=== PATIENT | female | born 1960 | race Caucasian/White ===

== ENCOUNTER → 2016-04-12 | Outpatient (CLI) | payer BC ==
--- NOTE | 2016-04-12 15:23 | MAM ---
EXAM DESCRIPTION: MAMMO BREAST SCREENING BILATERAL CAD, images were reviewed with CAD technology, R2 computer-aided detection. CLINICAL HISTORY: [facility]. COMPARISON: 2012 FINDINGS: Routine views are obtained. Scattered glandular pattern. No dominant mass, architectural distortion or clustered microcalcification period. IMPRESSION: Benign exam. BIRAD CATEGORY: 2 BENIGN RECOMMENDATIONS: FOLLOW-UP: Routine screening mammogram in one year. According to the [employer], yearly mammograms are recommended starting at age 40 and continuing as long as a woman is in good health. Any breast change noted on a breast self-exam should be reported promptly to the patient's healthcare provider. Breast MRI is recommended for women with an approximately 20-25% or greater lifetime risk of breast cancer, including women with a strong family history of breast or ovarian cancer and women who have been treated for Hodgkin's disease. Electronically signed by: Kaylen Dooley 04/12/2016 15:21
== END | disposition home or self-care (01) ==
LOC: MAMMO 08:35
PROVIDERS: ATTEND Family Medicine
DX: Z12.31 Encounter for screening mammogram for malignant neoplasm of breast (principal)

== ENCOUNTER → 2016-06-09 | Outpatient (CLI) | payer BC | END | disposition home or self-care (01) | LOC: GMAB 14:31 | PROVIDERS: ATTEND Family Medicine | DX: Z00.00 Encounter for general adult medical examination without abnormal findings (principal) ==

== ENCOUNTER → 2016-12-20 | Outpatient (CLI) | payer BC ==
--- NOTE | 2016-12-20 19:52 | US ---
EXAM DESCRIPTION: Thyroid: Ultrasound. CLINICAL HISTORY: THY NODULE COMPARISON: None. TECHNIQUE: Transcutaneous scannin-dimensional and Doppler modes. FINDINGS: Right lobe dimensions 4.6 x 1.4 x 1.3 cm. Heterogeneous echoes. 3.6 x 3.2 mm anechoic cyst, nonvascular . Normal vascularity in the remainder of the lobe. No microcalcifications. Contour right lobe smooth. Juxta-thyroid masses/fluid: none. Left lobe dimensions 4.1 x 1.5 x 1.5 cm. Heterogeneous echoes. Hypoechoic mass in the inferior pole with mass effect on the inferior pole capsule. 1.1 cm transverse, 1.4 x 1.2 cm in the sagittal plane. Mixed posterior features. Nonvascular. No vascularity in the remainder of the lobe. No microcalcifications. Contour left lobe smooth. Juxta-thyroid masses/fluid: none. Isthmus thickness 2.2 mm. Homogeneous echoes. No cystic, no solid, and no complex lesions. Normal vascularity. Contour smooth. IMPRESSION: 1. Solid nodule with possible cystic components in the inferior pole of the left lobe. This does not meet the imaging criteria for Fine needle aspiration sampling according to best practice guidelines, adopted from ACR white paper and Sellers 3-tiered guidelines on incidental thyroid nodules. Please see below.* These recommendations do not apply to patients with increased risk for thyroid cancer or patients with symptomatic thyroid disease. Small cyst in the right lobe. 2. No discrete solid masses, cystic masses, or edema in the surrounding soft tissues. *Further evaluation by thyroid US recommended for: -Solitary incidental thyroid nodule (ITN) with high risk imaging features (locally invasive nodule or suspicious lymph nodes) -Solitary ITN of any size in pediatric patients <= 18 years of age -Solitary ITN >= 1 cm in axial plane in patients between 18 and 35 years of age -Solitary ITN >= 1.5 cm in axial plane in patients >= 35 years of age -Heterogeneous enlarged thyroid gland -ITN avid on FDG-PET or other nuclear medicine (MIBI and octreotide) scans. FNA biopsy is also recommended for PET avid nodules. 2.No f/u imaging is recommended for ITN's not meeting the above criteria. 3.For multiple thyroid nodules, the above recommendations for solitary ITN are to be applied to the largest nodule. 4.No US or f/u recommended for ITN's without high risk features in patients with limited life expectancy or significant co-morbidities, unless clinically warranted. 5.These recommendations do not apply to patients w/ increased risk for thyroid cancer or patients with symptomatic thyroid disease. Recommendations for f/u of Incidental Thyroid Nodules (ITN) found on CT, MR, NM and Extrathyroidal US are based upon the ACR white paper and Sellers 3-tiered system for managing ITN's: [facility] 2015 Apr;12(2): 143-50 Electronically signed by: Lenard Day MD 12/20/2016 7:51 PM CDT Workstation: [id number]
== END | disposition home or self-care (01) ==
LOC: US 10:11
PROVIDERS: ATTEND Family Medicine
DX: E04.1 Nontoxic single thyroid nodule (principal)

== ENCOUNTER → 2017-05-12 | Outpatient (CLI) | payer BC ==
--- NOTE | 2017-05-12 16:45 | CT ---
EXAM DESCRIPTION: Head CLINICAL HISTORY: DIZZINES COMPARISON: None Available TECHNIQUE: Contiguous axial CT images of the head were obtained. Coronal and sagittal reconstructions were created from the axial data. This exam was performed according to our departmental dose-optimization program, which includes automated exposure control, adjustment of the mA and/or kV according to patient size and/or use of iterative reconstruction technique. FINDINGS: There is no evidence of acute mass, mass effect, midline shift or hemorrhage. The ventricles and extra-axial CSF spaces are unremarkable. The brain parenchyma appears normal for the patient's age. No acute abnormalities of the bones is seen. IMPRESSION: No acute intracranial abnormality. Electronically signed by: Lenard Chen 05/12/2017 4:44 PM [facility]
== END ==
LOC: CT 10:13
PROVIDERS: ATTEND Family Medicine
DX: R42 Dizziness and giddiness (principal)

== ENCOUNTER 2017-05-28 23:44 | Emergency (ER) | payer BC ==
[2017-05-29 00:02] VITALS: O2SAT 98
[2017-05-29] MEDS ORDERED: ASPIRIN TABLET 325 MG TAB PO ONE (00:16)
--- NOTE | 2017-05-29 00:25 | ED.PDOC ---
History of Present Illness - General Chief Complaint: General Stated Complaint: vision blurry and dizziness Time Seen by Provider: 05/28/17 23:52 Source: patient, other - riend Exam Limitations: no limitations - History of Present Illness Initial Comments: the patient is a 56-year-old female presenting to the emergency room secondary to 10 minutes of double vision that was witnessed by her friend. The patient apparently exhibited some enophthalmos of her left eye. She felt a little bit dizzy but not nauseated. No significant spinning of the room sensation. The time she arrived here the episode and left. The patient has been up for quite a long time today. She has apparently experienced some episodes of dizziness over the last couple of months that she has discussed with her primary care doctor. She did get a CT scan of the head a couple of weeks ago with her primary care doctor that did not show any acute pathology. She is not significantly dizzy now with any movements of the head. The only slightly unusual clinical finding I see currently is a mild vertical upbeat nystagmus when looking to the right. She is alert and oriented currently without any obvious neurological deficits. She is pleasant and cooperative. She does report that she has blood pressures that run very much on the low side and does take multiple pressure medication secondary to a history of some congestive heart failure and a heart attack several years ago. She does take diuretics. She did eat supper neema.. Timing/Duration: unsure Severity: moderate Improving Factors: nothing Worsening Factors: nothing Associated Symptoms: denies symptoms Allergies/Adverse Reactions: Allergies NO KNOWN ALLERGY Allergy (Unverified 11/24/12 17:18) Home Medications: Ambulatory Orders Cephalexin Monohydrate [Keflex] 500 mg PO Q8H #20 cap 05/29/17 Review of Systems - Review of Systems Constitutional: States: malaise EENTM: States: blurred vision, double vision Respiratory: States: no symptoms reported Cardiology: States: no symptoms reported Gastrointestinal/Abdominal: States: no symptoms reported Genitourinary: States: no symptoms reported Musculoskeletal: States: no symptoms reported Skin: States: no symptoms reported Neurological: States: see HPI Endocrine: States: no symptoms reported All other Systems: No Change from Baseline Past Medical History (General) - Patient Medical History Hx Cardiac Disorders: Yes Hx Pacemaker: Yes Hx Diabetes: No Surgical History: no surgical history - Vaccination History Hx Tetanus, Diphtheria Vaccination: Yes Hx Influenza Vaccination: No Hx Pneumococcal Vaccination: No - Social History Hx Tobacco Use: No Hx Alcohol Use: No Family Medical History - Family History Mother Family History: Unknown Physical Exam - Physical Exam General Appearance: Alert, Comfortable, No apparent distress Eye Exam: bilateral normal - see history of present illness Ears, Nose, Throat: hearing grossly normal, normal ENT inspection, normal pharynx Neck: full range of motion, supple Respiratory: lungs clear, normal breath sounds, no respiratory distress, no accessory muscle use Cardiovascular/Chest: normal peripheral pulses, regular rate, rhythm, no edema Peripheral Pulses: radial,right: 2+, radial,left: 2+, dorsalis pedis,right: 2+, dorsalis pedis,left: 2+ Gastrointestinal/Abdominal: non tender, soft Rectal Exam: deferred Back Exam: normal inspection, no CVA tenderness Extremity: normal range of motion, non-tender, normal inspection, no pedal edema , normal capillary refill Neurologic: rigger II-XII nml as tested, no motor/sensory deficits, alert, normal mood/affect, oriented x 3 Skin Exam: normal color Comments: Vital Signs - 24 hr 05/28/17 23:56 Temperature 97.8 F Pulse Rate [ 68 Left Radial] Respiratory 20 Rate Blood Pressure 110/64 [lt arm] O2 Sat by Pulse 98 Oximetry Progress - Progress Progress: 05/29/17 02:09 the patient is a 56-year-old female presenting after an episode of esotropia of the left eye that lasted 5-10 minutes. she did briefly have some mild vertical nystagmus when looking towards the right, shortly after but this is resolved. The patient does have some mild to moderate dehydration as well as a mild urinary tract infection. she will be placed on Keflex for the urinary tract infection and has received a first dose here tonight. She is to increase her fluid intake over the next day or 2 and change her Lasix to Tuesday dosings only. She was also given a dose of potassium for mild hypokalemia. All symptoms resolved and the patient just had a CT scan less than 2 weeks ago of the head so one was not repeated here tonight. Consideration should be given for neurological evaluation in the coming weeks if she has further episodes in spite of reducing the diuretics. ER warnings were given for any worsening. She should continue her aspirin. - Results/Orders Results/Orders: 05/29/17 00:15 Telemetry .CONTINUOUS normal sinus rhythm Vital Signs-Tilt PRN 05/29/17 00:30 EKG STAT shows normal sinus rhythm at 62 bpm. She does appear to have old Q waves and T-wave inversions in anterior leads. Otherwise no evidence of any acute ST segment changes indicative of acute ischemia. Laboratory Results - last 24 hr 05/29/17 05/29/17 05/29/17 00:20 00:25 00:25 WBC 8.5 RBC 3.90 L Hgb 12.8 Hct 36.6 MCV 93.9 MCH 32.8 H MCHC 34.8 RDW 12.4 Plt Count 188 MPV 7.6 Absolute Neuts (auto) 4.90 Absolute Lymphs (auto) 2.60 Absolute Monos (auto) 0.70 Absolute Eos (auto) 0.30 Absolute Basos (auto) 0.10 Neutrophils % 57.5 Lymphocytes % 30.6 Monocytes % 7.7 Eosinophils % 3.4 Basophils % 0.8 Sodium 138 Potassium 3.5 L Chloride 105 Carbon Dioxide 26 Anion Gap 10.5 L BUN 32 H Creatinine 1.02 BUN/Creatinine Ratio 31.4 H Random Glucose 105 Serum Osmolality 282.9 Calcium 9.5 Magnesium 2.1 Total Bilirubin 0.6 AST 24 ALT 21 Alkaline Phosphatase 78 Creatine Kinase 88 CK-MB (CK-2) 1.5 CK-MB (CK-2) % Not Reportable Troponin I < 0.02 B-Natriuretic Peptide 50.3 Serum Total Protein 7.4 Albumin 4.5 Globulin 2.9 Albumin/Globulin Ratio 1.6 TSH 3.39 Urine Color Yellow Urine Appearance Clear Urine pH 5.0 Ur Specific [place] 1.010 Urine Protein Negative Urine Glucose (UA) Negative Urine Ketones Negative Urine Blood Trace-intact H Urine Nitrite Negative Urine Bilirubin Negative Urine Urobilinogen 0.2 Ur Leukocyte Esterase Small H Urine RBC 1-3 Urine WBC 5-10 H Ur Epithelial Cells 1-3 Urine Bacteria Rare - EKG/XRAY/CT CT Ordered: No Departure - Departure Clinical Impression: Esotropia of left eye, Dehydration, Hypokalemia Urinary tract infection Qualifiers: Urinary tract infection type: acute cystitis Hematuria presence: without hematuria Qualified Code(s): N30.00 - Acute cystitis without hematuria Disposition: Discharge to Home or Self Care Condition: Fair Departure Forms: ED Discharge - Pt. Copy, Patient Portal Self Enrollment Instructions: DI for Hypokalemia, DI for Dehydration -- Adult, DI for Orthostatic Hypotension Diet: regular diet Activity: increase activity as tolerated Referrals: Lam Feldman MD [Primary Care Provider] - 1-5 Days Prescriptions: Cephalexin Monohydrate [Keflex] 500 mg PO Q8H #20 cap Home Medications: Ambulatory Orders Cephalexin Monohydrate [Keflex] 500 mg PO Q8H #20 cap 05/29/17 Additional Instructions: the patient is a 56-year-old female presenting after an episode of esotropia of the left eye that lasted 5-10 minutes. she did briefly have some mild vertical nystagmus when looking towards the right, shortly after but this is resolved. The patient does have some mild to moderate dehydration as well as a mild urinary tract infection. she will be placed on Keflex for the urinary tract infection and has received a first dose here tonight. She is to increase her fluid intake over the next day or 2 and change her Lasix to Tuesday dosings only. She was also given a dose of potassium for mild hypokalemia. All symptoms resolved and the patient just had a CT scan less than 2 weeks ago of the head so one was not repeated here tonight. Consideration should be given for neurological evaluation in the coming weeks if she has further episodes in spite of reducing the diuretics. ER warnings were given for any worsening. She should continue her aspirin. The patient should keep a diary of any future episodes and she should also take her blood pressure with any future episodes as transient hypotension is certainly high on the list of suspected causes of these episodes for her.
[2017-05-29] MEDS ORDERED: POTASSIUM CHLORIDE ELIXIR 20 MEQ/15 ML UD PO ONE (00:55)
[2017-05-29] MEDS ORDERED: CEPHALEXIN MONOHYDRATE 500 MG CAP PO ONE (01:38)
[2017-05-29 02:21] VITALS: BP 103/59; TEMP 97
== END 2017-05-29 02:21 | disposition home or self-care (01) ==
LOC: ER 23:44
DX: H50.00 Unspecified esotropia (principal); E86.0 Dehydration; E87.6 Hypokalemia; N30.00 Acute cystitis without hematuria; Z95.0 Presence of cardiac pacemaker

== ENCOUNTER → 2017-06-27 | Outpatient (CLI) | payer BC ==
--- NOTE | 2017-06-27 13:14 | US ---
EXAM DESCRIPTION: Carotid Duplex CLINICAL HISTORY: R42 COMPARISON: None Available. TECHNIQUE: Carotid Doppler ultrasound FINDINGS: Right Submitted images show no significant stenosis in the common carotid, internal carotid or external carotid arteries.. The following flow velocities were obtained: Common carotid artery peak systolic flow velocity measures 81 centimeters per second. Internal carotid artery peak systolic flow velocity measures 64 centimeters per second. External carotid artery peak systolic flow velocity measures 58 centimeters per second. Flow in the right vertebral artery is antegrade. The right internal carotid to common carotid peak systolic flow velocity ratio equals 0.8 which is normal. Left Submitted images show normal caliber of the left common carotid, internal carotid and external carotid arteries with no significant stenosis. The following flow velocities were obtained: Common carotid artery peak systolic flow velocity measures 101 centimeters per second. Internal carotid artery peak systolic flow velocity measures 50 centimeters per second. External carotid artery peak systolic flow velocity measures 78 centimeters per second. Flow in the left vertebral artery is antegrade. The left internal carotid to common carotid peak systolic flow velocity ratio of 0.5 is normal. IMPRESSION: No significant stenosis. Electronically signed by: Honorio Villatoro MD 06/27/2017 1:12 PM CDT
== END ==
LOC: US 09:15
PROVIDERS: ATTEND Family Medicine
DX: R42 Dizziness and giddiness (principal)

== ENCOUNTER → 2018-04-10 | Outpatient (CLI) | payer BC ==
--- NOTE | 2018-04-10 16:45 | CT ---
PROCEDURE: Head CLINICAL HISTORY: 57 years Female DIZZINESS COMPARISON: None. TECHNIQUE: Contiguous axial CT images obtained through the brain without IV contrast. This exam was performed according to our department optimization program which includes automated exposure control, adjustment of the mA and/or kv according to patient size and/or use of iterative reconstruction technique. FINDINGS: The ventricles and sulci are within normal limits for the patient's age. No midline shift or mass effect. No masses identified. No acute intracranial hemorrhage. Old lacunar infarct in the basal ganglia bilaterally. No fluid or significant mucosal thickening in the visualized paranasal sinuses. No depressed calvarial fractures. IMPRESSION: No acute intracranial abnormality is identified. Electronically signed by: Beata Pinedo MD 04/10/2018 4:43 PM [employer]
== END ==
LOC: CT 16:11
PROVIDERS: ATTEND Family Medicine
DX: R42 Dizziness and giddiness (principal)

== ENCOUNTER → 2018-05-31 | Outpatient (CLI) | payer BC ==
--- NOTE | 2018-06-01 09:38 | US ---
US THYROID CLINICAL STATEMENT: THYROID NODULE. No palpable mass. No prior thyroid surgery or therapy. COMPARISON: None TECHNIQUE: Transcutaneous scanning, grayscale and Doppler modes. FINDINGS: Size right thyroid lobe: 3.6 x 1.4 x 1.0. cm Size left thyroid lobe: 3.9 x 1.4 x 1.3. cm Size isthmus: 0.2 cm Estimated total number of nodules greater than or equal to 1 cm: 1.. Heterogeneous right lobe and isthmus. Nodule 1: Size: 1.2 x 1.1 x 1.0 cm Location: Left Lower Composition: solid or almost completely solid: 2 points Echogenicity: hypoechoic: 2 points Shape: wider than tall: 0 points Margins: smooth: 0 points Echogenic foci: none: 0 points ACR Total Points: 4; ACR TI-RADS risk category: TR4 - moderately suspicious nodule. In the soft tissues around the thyroid gland, no distinct cyst or dominant solid mass. No parenchymal edema or large calcifications. No overlying skin changes. Normal vascularity. IMPRESSION: 1. Nodule 1: ACR TI-RADS 2017 Category TR4. Recommend: Follow-up ultrasound in 1 year.. Recommendations based upon [employer] Best Practice recommendations and ACR TI-RADS 2017 guidelines. Please see below*. 2. Soft tissue around the thyroid gland is unremarkable. *ACR TI-RADS 2017 Recommendations: TR1: No FNA or follow up TR2: No FNA or follow up TR3: FNA if >/= 2.5 cm, follow up if 1.5 - 2.4 cm in 1, 3, and 5 years TR4: FNA if >/= 1.5 cm, follow up if 1.0 - 1.4 cm in 1, 2, 3, and 5 years TR5: FNA if >/= 1.0 cm, follow up if 0.5 - 0.9 cm every year for 5 years ACR TI-RADS recommends that no more than two nodules with the highest ACR TI-RADS total point should be biopsied and no more than four nodules should be followed. These recommendations do not apply to patients with increased risk for thyroid cancer or patients with symptomatic thyroid disease. Electronically signed by: Lenard Day MD 06/01/2018 9:34 AM CDT
== END ==
LOC: US 09:54
PROVIDERS: ATTEND Family Medicine
DX: E04.1 Nontoxic single thyroid nodule (principal)

== ENCOUNTER → 2020-01-16 | Outpatient (CLI) | payer BC | LOC: GMAE 16:38 | PROVIDERS: ATTEND Family Medicine | DX: N30.00 Acute cystitis without hematuria (principal) ==

== ENCOUNTER → 2020-01-22 | Outpatient (CLI) | payer BC | LOC: GMAE 14:31 | PROVIDERS: ATTEND Family Medicine | DX: N30.00 Acute cystitis without hematuria (principal) ==

== ENCOUNTER → 2020-02-08 | Outpatient (CLI) | payer BC | LOC: GMAE 13:08 | PROVIDERS: ATTEND Family Medicine | DX: N30.01 Acute cystitis with hematuria (principal) ==